=== PATIENT | female | born 1985 | race African-American/Black ===

== ENCOUNTER 2017-07-17 15:44 | Emergency (ER) | payer MEDICAID ==
[~2017-07-17] VITALS: Ht 172.7 cm; Wt 97.0 kg
[2017-07-18] MEDS ORDERED: KETOROLAC 60MG/2ML VIAL IM ONE (00:45)
[2017-07-18 02:10] VITALS: BP 127/69
== END 2017-07-18 02:10 | disposition home or self-care (01) ==
LOC: ER 21:38
DX: M54.5 Low back pain (principal); G40.909 Epilepsy, unspecified, not intractable, without status epilepticus; F17.210 Nicotine dependence, cigarettes, uncomplicated; I10 Essential (primary) hypertension; M54.30 Sciatica, unspecified side; Z88.0 Allergy status to penicillin
CPT/HCPCS: 81025; 93970; 96372; 99284; J1885; Z7610